=== PATIENT | female | born 1950 ===

== ENCOUNTER → 2018-03-20 21:12 | Outpatient (REF) | payer BC, SELFPAY ==
[2018-03-20 21:31] LABS: Add Manual Diff / Slide Review NO; Basophils Percent Auto 0.5 % (0-2); Eosinophils Percent Auto 1.9 % (2-4); Hematocrit 40.8 % (36-46); Hemoglobin 13.4 g/dL (12.0-16.0); Lymphocytes Percent Auto 41.1 % (25-40); Mean Corpuscular HGB Conc 32.7 % (30-36); Mean Corpuscular Hemoglobin 29.5 PG (26-34); Mean Corpuscular Volume 90.2 fL (80-100); Monocytes Percent Auto 7.4 % (3-14); Neutrophils Absolute Auto 2300 /uL (1500-7000); Neutrophils Percent Auto 49.1 % (50-75); Platelet Count 258 X10^3/uL (150-400); Red Blood Cell Count 4.53 X10^6/uL (4.0-5.2); White Blood Cell Count 4.6 X10^3/uL (4.5-11.0)
[2018-03-20 21:40] LABS: Bilirubin Urine UA NEGATIVE (NEGATIVE); Color Urine UA YELLOW; Glucose Urine UA NEGATIVE (Negative); Ketones Urine UA NEGATIVE (NEGATIVE); Leukocyte Esterase Urine UA NEGATIVE (NEGATIVE); Nitrite Urine UA NEGATIVE (Negative); Occult Blood Urine UA 2+ (Negative); Protein Urine UA 1+ (Negative); Specific Gravity Urine UA 1.015 (1.000-1.035); Urobilinogen Urine UA 0.2 E.U./dL (0.2)
[2018-03-20 21:45] LABS: Alanine Aminotransferase 24 IU/L (9-52); Albumin Globulin Ratio 1.6 (1.0-2.8); Alkaline Phosphatase 75 U/L (38-126); Aspartate Aminotransferase 21 IU/L (14-36); BUN Creatinine Ratio 31.7 (6-22); Bilirubin Total 0.9 mg/dL (0.2-1.3); Blood Urea Nitrogen 19 mg/dL (7-17); Carbon Dioxide 30 mmol/L (22-32); Chloride 103 mmol/L (98-107); Cholesterol 214 mg/dL (140-199); Estimated Glomerular Filt Rate > 60.0 mL/min (>60); Globulin 2.5 g/dL (1.7-4.1); Glucose 112 mg/dL (80-110); HDL Cholesterol 63 mg/dL (40-60); HEMOLYSIS < 15 (0-50); LDL Cholesterol Calculated 123 mg/dL (<100); Potassium 3.8 mmol/L (3.4-5.1); Sodium 142 mmol/L (137-145); Total Protein 6.5 g/dL (6.3-8.2); Triglycerides 140 mg/dL (35-150)
[2018-03-20 21:47] LABS: Appearance Urine UA Cloudy
[2018-03-20 21:52] LABS: Bacteria Urine Many (>30); RBC Urine 1-5/HPF (0-5/HPF); Squamous Epithelial Cell Urine 1-5 /HPF; WBC Urine 1-5/HPF (0-5/HPF)
[2018-03-20 22:16] LABS: TSH w/ Reflex to FT4 2.15 uIU/mL (0.47-4.68)
[2018-03-20 22:20] LABS: Ferritin 40.2 ng/mL (11.1-264)
== END ==
LOC: LAB 21:12
PROVIDERS: Visit Provider Family Medicine
DX: Z00.01 Encounter for general adult medical examination with abnormal findings (principal); I10 Essential (primary) hypertension; Z13.89 Encounter for screening for other disorder; R53.83 Other fatigue; H81.13 Benign paroxysmal vertigo, bilateral
CPT/HCPCS: 36415; 80053; 80061; 81001; 82728; 84443; 85025